=== PATIENT | female | born 1985 | race Two or more races ===

== ENCOUNTER 2017-11-30 07:50 | Outpatient (CLI) | payer OTHER | END 2017-11-30 23:59 | disposition home or self-care (01) | LOC: WOU 07:50 | PROVIDERS: ATTEND Podiatrist Foot & Ankle Surgery | DX: S92.355D Nondisplaced fracture of fifth metatarsal bone, left foot, subsequent encounter for fracture with routine healing (principal); X58.XXXD Exposure to other specified factors, subsequent encounter; R60.0 Localized edema; M79.672 Pain in left foot; Z87.891 Personal history of nicotine dependence; Z91.018 Allergy to other foods | CPT/HCPCS: 73630-TC; G0463 ==